=== PATIENT | female | born 1980 | race Caucasian/White ===

== ENCOUNTER 2017-11-15 21:21 | Inpatient (IN) | payer MEDICAID ==
[~2017-11-15] VITALS: Ht 170.2 cm; Wt 77.1 kg
[2017-11-15 22:20] LABS: APPEARANCE CLEAR (CLEAR); BILIRUBIN NEGATIVE (NEGATIVE); COLOR YELLOW (YELLOW); GLUCOSE NEGATIVE (NEGATIVE); KETONE MODERATE mg/dL (NEGATIVE); NITRITE NEGATIVE (NEGATIVE); PROTEIN NEGATIVE (NEGATIVE); SPECIFIC GRAVITY 1.025 (1.005-1.020); UROBILINOGEN NORMAL (NORMAL)
[2017-11-16] VITALS (8 sets, daily range): BP systolic 104–116; BP diastolic 53–69; Ht 170.2 cm; Wt 77.1 kg
[2017-11-16 08:01] LABS: HEMATOCRIT 28.3 % (36.0-48.0); HEMOGLOBIN 9.4 g/dL (12-16); MCH 29.5 pg (26.0-34.0); MCHC 33.2 g/dL (31.0-37.0); MCV 88.7 fL (80.0-100.0); MEAN PLATELET VOLUME 9.8 fL (7.4-10.4); RBC 3.19 10x6/uL (4.00-5.40); WBC 11.3 10x3/uL (4.8-10.8)
[2017-11-16 15:06] LABS: BASOPHILS 0 % (0-2); EOSINOPHILS 0.1 % (0-7); HEMATOCRIT 26.8 % (36.0-48.0); IMMATURE GRANULOCYTES 0.2 % (0-5); LYMPHOCYTES 10.8 % (15-50); MCH 29.6 pg (26.0-34.0); MCHC 33.6 g/dL (31.0-37.0); MCV 88.2 fL (80.0-100.0); MONOCYTES 4.7 % (2-11); NEUTROPHILS 84.2 % (40-80); PLATELET COUNT 153 10x3/uL (130-400); RBC 3.04 10x6/uL (4.00-5.40); RDW 13.2 % (11.5-14.5); WBC 11.6 10x3/uL (4.8-10.8)
[2017-11-17] MEDS ORDERED: TYLENOL W/CODEI1 TAB PO (06:36)
[2017-11-17] MEDS ORDERED: BUSPAR10 MG PO (06:36)
[2017-11-17 06:41] LABS: BASOPHILS 0.1 % (0-2); EOSINOPHILS 0.6 % (0-7); HEMATOCRIT 27.2 % (36.0-48.0); HEMOGLOBIN 9.1 g/dL (12-16); IMMATURE GRANULOCYTES 0.3 % (0-5); MCH 29.3 pg (26.0-34.0); MCHC 33.5 g/dL (31.0-37.0); MCV 87.5 fL (80.0-100.0); MEAN PLATELET VOLUME 9.5 fL (7.4-10.4); MONOCYTES 6.1 % (2-11); NEUTROPHILS 80.9 % (40-80); PLATELET COUNT 132 10x3/uL (130-400); RBC 3.11 10x6/uL (4.00-5.40); RDW 13.2 % (11.5-14.5); WBC 11.7 10x3/uL (4.8-10.8)
[2017-11-17 08:26] LABS: RAPID PLASMA REAGIN Non Reactive (Non Reactive)
[2017-11-17 08:37] VITALS: BP 124/60
[2017-11-17 17:06] VITALS: BP 114/62
[2017-11-17 19:21] VITALS: BP 119/55
[2017-11-17 22:30] VITALS: BP 101/58
[2017-11-18 08:02] VITALS: BP 105/61
[2017-11-18] MEDS ORDERED: PERCOCET 10/3251 TA1 PO (09:05)
== END 2017-11-18 14:35 | disposition home or self-care (01) | DRG 765 ==
LOC: D.LDO 21:21 → D.LD 22:56 → D.LDO 11-16 07:35 → D.LD 11-16 07:36
PROVIDERS: Obstetrics & Gynecology
PROC: 10D00Z1 Extraction of Products of Conception, Low, Open Approach (ICD-10-PCS; principal; 2017-11-17)
DX: O34.211 Maternal care for low transverse scar from previous cesarean delivery (principal); O36.0930 Maternal care for other rhesus isoimmunization, third trimester, not applicable or unspecified; O76 Abnormality in fetal heart rate and rhythm complicating labor and delivery; Z37.0 Single live birth; Z3A.38 38 weeks gestation of pregnancy